=== PATIENT | male | born 1975 ===

== ENCOUNTER 2016-12-07 08:08 | Emergency (ER) | payer MEDICARE, MEDICAID ==
--- NOTE | 2016-12-07 08:32 | ED PDOC ---
Lower Extremity Pain/Injury Time Seen by Provider: 12/07/16 08:12 Chief Complaint (Nursing): Lower Extremity Problem/Injury Chief Complaint (Provider): Left medial ankle pain History Per: Family (mother) History/Exam Limitations: other (patient has autism) Onset/Duration Of Symptoms: Days (4x) Current Symptoms Are (Timing): Still Present Severity: Moderate Additional Complaint(s): 41 year old male with autism accompanied by his mother (HPI is as per mother) presents to the ED with complaints of left medial ankle pain that started 4x days ago. His mother reports that her son has been taking motrin for the pain with no relief. She reports that he was recently diagnosed with gout and he has an appointment scheduled with Stone Callahan MD in 2x days. She denies any trauma to his left ankle. PMD: [facility] provider Past Medical History Reviewed: Historical Data, Nursing Documentation, Vital Signs Vital Signs: Last Vital Signs Temp 98.3 F 12/07/16 08:16 Pulse 122 H 12/07/16 08:16 Resp 18 12/07/16 08:16 BP 173/98 H 12/07/16 08:16 Pulse Ox 98 12/07/16 08:16 - Medical History PMH: Anxiety, HTN, Hyperlipidemia - Surgical History Surgical History: No Surg Hx - Family History Family History: States: Unknown Family Hx - Social History Alcohol: None Drugs: Denies - Home Medications Home Medications: Ambulatory Orders Medication Instructions Recorded Lisinopril [Zestril] 20 mg PO DAILY 12/07/16 [id number] Ethyl Esters 1 GM 1 gm PO BID 12/07/16 [Lovaza] Pravastatin Sodium [Pravachol] 40 mg PO DAILY 12/07/16 Risperidone [Risperdal] 1 mg PO BID 12/07/16 - Allergies Allergies/Adverse Reactions: Allergies Allergy/AdvReac Type Severity Reaction Status Date / Time No Known Allergies Allergy Verified 12/07/16 08:16 Review of Systems Review Of Systems: ROS cannot be obtained secondary to pt's inabilty to answer questions. (due to patient having autism) Musculoskeletal: Positive for: Foot Pain (left medial ankle pain) Physical Exam - Reviewed Nursing Documentation Reviewed: Yes Vital Signs Reviewed: Yes - Physical Exam Appears: Positive for: Well, Non-toxic, No Acute Distress Head Exam: Positive for: ATRAUMATIC, NORMOCEPHALIC Skin: Positive for: Normal Color Extremity: Positive for: Other (left medial ankle: erythema. No lesions. Minimal wamrth). Negative for: Swelling Neurologic/Psych: Positive for: Alert - ECG O2 Sat by Pulse Oximetry: 98 (RA) Pulse Ox Interpretation: Normal Medical Decision Making Medical Decision Makin:12 Initial impression: 41 year old male with left medial ankle pain Initial plan: * XRay ankle left 3 views * XRay foot left 3 views * Ultram 50mg PO * Reevaluation Scribe Attestation: Documented by Sil Huston, acting as a scribe for Kathie Melendez MD. Provider Scribe Attestation: All medical record entries made by the Scribe were at my direction and personally dictated by me. I have reviewed the chart and agree that the record accurately reflects my personal performance of the history, physical exam, medical decision making, and the department course for this patient. I have also personally directed, reviewed, and agree with the discharge instructions and disposition.
[2016-12-07 08:40] VITALS: O2SAT 98
--- NOTE | 2016-12-07 08:50 | RAD ---
PROCEDURE: Left Foot Radiographs. HISTORY: Medial pain COMPARISON: None. FINDINGS: BONES: Normal. No fracture. JOINTS: Normal. SOFT TISSUES: Normal. OTHER FINDINGS: None. IMPRESSION: Normal left foot radiographs.
--- NOTE | 2016-12-07 08:51 | RAD ---
PROCEDURE: Left Ankle Radiographs. HISTORY: Medial pain COMPARISON: None FINDINGS: BONES: Old medial malleolar fracture. Retro calcaneal heel spur. JOINTS: Normal. No osteoarthritis. Ankle mortise maintained. Talar dome intact SOFT TISSUES: Normal. OTHER FINDINGS: None. IMPRESSION: Old medial malleolar fracture. Retro calcaneal heel spur.
--- NOTE | 2016-12-07 10:55 | CP.PCM.CON ---
History of Present Illness - History of Present Illness History of Present Illness: 41 year male with PMHx of autisim, HTN, HLD, gout presents to the ED for left ankle pain. Patient is accompanied by his mother, who is the historian. Mother state that the pain started on Friday, and got worse on to the point that he couldn't put weight on his left foot and was hopping. She has given him motrin 400 mg for the pain but he has not had much relief. She denies any trauma. Past Patient History - Past Social History Alcohol: None Drugs: Denies - CARDIAC Hx Hypertension: Yes - PSYCHIATRIC Hx Anxiety: Yes - SURGICAL HISTORY Hx Surgeries: No - ANESTHESIA Hx Anesthesia: No Meds Home Medications: Home Medication List Medication Instructions Recorded Confirmed Type Naproxen [Naprosyn] 500 mg PO BID PRN #15 tablet 12/07/16 Rx Allergies/Adverse Reactions: Allergies Allergy/AdvReac Type Severity Reaction Status Date / Time No Known Allergies Allergy Verified 12/07/16 08:16 Physical Exam - Constitutional Appears: Well, Non-toxic, No Acute Distress - Extremities Exam Additional comments: Vasc:DP and PT pulses palbpel 2/4 b/l. Skin temperature warm to warm from proximal to distal b/l. CFT < 3 seconds to all digits b/l. Ortho:Pain on palpation to left medial malleolus. Derm:Mild erythema noted to left medial ankle with mild edema. No open lesions, no drainage noted. Slight increase in warmth noted. Neuro: Unable to assess - Neurological Exam Neurological exam: Alert Results - Vital Signs Recent Vital Signs: Last Vital Signs Temp 98.3 F 12/07/16 08:16 Pulse 122 H 12/07/16 08:16 Resp 18 12/07/16 08:16 BP 173/98 H 12/07/16 08:16 Pulse Ox 98 12/07/16 08:39 Assessment & Plan - Assessment and Plan (Free Text) Assessment: 41 year old male with left medial ankle pain Plan: Patient examined and evaluated Chart, vitals reviewed Discussed in detail with attending, Dr. Callahan Radiographs reviewed- no acute signs of fracture noted Given in ED: colcyrs 3 (0.6 mg each) tabs. Sig: take 2 tabs (1.2 mg total), then 1 hour later 1 tab(0.6 mg total) Rx NSAID per ED attending Patient to follow up with Dr. Callahan in office for scheduled appointment.
[2016-12-07] MEDS ORDERED: COLCHICINE 0.6 MG CAPSULE PO ONE ×2 (11:30→12:30)
[2016-12-07 12:24] VITALS: PULSE 80; RESP 20
[2016-12-07 12:33] VITALS: BP 140/70; TEMP 97.9
== END 2016-12-07 12:34 | disposition home or self-care (01) ==
LOC: H.ER 08:08
DX: M25.572 Pain in left ankle and joints of left foot (principal); M10.9 Gout, unspecified

== ENCOUNTER 2018-07-02 08:31 | Emergency (ER) | payer MEDICARE, MEDICAID ==
[2018-07-02 08:36] VITALS: O2SAT 98
--- NOTE | 2018-07-02 08:52 | ED PDOC ---
HPI: CCC, URI, Sore Throat Time Seen by Provider: 07/02/18 08:42 Chief Complaint (Nursing): ENT Problem Chief Complaint (Provider): left ear pain History Per: Patient History/Exam Limitations: no limitations Onset/Duration Of Symptoms: Days (x3) Current Symptoms Are (Timing): Still Present Location Of Pain: Ear(s) (left) Associated Symptoms: denies: Fever, Chills Ear Symptoms: Left: Ear Pain Additional Complaint(s): Peyman Verde is a 43 year old male, with a past medical history of autism, who presents to the emergency department complaining of left ear pain onset for x3 days. Patient denies any fever, chills or ear discharge. No further medical complaints. PMD: None provided. Past Medical History Reviewed: Historical Data, Nursing Documentation, Vital Signs Vital Signs: Last Vital Signs Temp 98.5 F 07/02/18 08:34 Pulse 90 07/02/18 08:34 Resp 18 07/02/18 08:34 BP 133/85 07/02/18 08:34 Pulse Ox 98 07/02/18 08:34 - Medical History PMH: Anxiety, HTN, Hyperlipidemia Other PMH: autism - Surgical History Surgical History: No Surg Hx - Family History Family History: States: Unknown Family Hx - Social History Current smoker - smoking cessation education provided: No Alcohol: None Drugs: Denies - Home Medications Home Medications: Ambulatory Orders Medication Instructions Recorded Lisinopril [Zestril] 20 mg PO DAILY 12/07/16 Naproxen [Naprosyn] 500 mg PO BID PRN #15 tablet 12/07/16 [id number] Ethyl Esters 1 GM 1 gm PO BID 12/07/16 [Lovaza] Pravastatin Sodium [Pravachol] 40 mg PO DAILY 12/07/16 Risperidone [Risperdal] 1 mg PO BID 12/07/16 Neomycin/Polymyxin/Hydrocortis 3 drop OT TID #1 bottle 07/02/18 [Cortisporin Otic Susp] - Allergies Allergies/Adverse Reactions: Allergies Allergy/AdvReac Type Severity Reaction Status Date / Time No Known Allergies Allergy Verified 12/07/16 08:16 Review of Systems ROS Statement: Except As Marked, All Systems Reviewed And Found Negative Constitutional: Negative for: Fever, Chills ENT: Positive for: Ear Pain (left). Negative for: Ear Discharge Physical Exam - Reviewed Nursing Documentation Reviewed: Yes Vital Signs Reviewed: Yes - Physical Exam Appears: Positive for: No Acute Distress Head Exam: Positive for: ATRAUMATIC, NORMAL INSPECTION, NORMOCEPHALIC Skin: Positive for: Normal Color, Warm, Dry Eye Exam: Positive for: Normal appearance, EOMI, PERRL ENT: Positive for: TM Is/Are (clear), Other (Left ear canal erythematous) Neck: Positive for: Painless ROM Cardiovascular/Chest: Positive for: Regular Rate, Rhythm. Negative for: Murmur Respiratory: Positive for: Normal Breath Sounds. Negative for: Respiratory Distress Extremity: Positive for: Normal ROM (upper and lower extremities). Negative for: Deformity, Swelling Neurologic/Psych: Positive for: Alert, Oriented, Gait (steady) - ECG O2 Sat by Pulse Oximetry: 98 (RA) Pulse Ox Interpretation: Normal Medical Decision Making Medical Decision Making: Time: 08:42 Initial Plan: --Reevaluation At this time patient requires no further treatment in the ED. Patient is medically stable for discharge home with Rx for Cortisporin Otic Susp. Co unseling was provided and all questions were answered regarding diagnosis. There is an agreement for discharge plan. Return if symptoms persist or worsen. Scribe Attestation: Documented by Carter Sosa, acting as a scribe for Miguel Diaz MD. Provider Scribe Attestation: All medical record entries made by the Scribe were at my direction and personally dictated by me. I have reviewed the chart and agree that the record accurately reflects my personal performance of the history, physical exam, medical decision making, and the department course for this patient. I have also personally directed, reviewed, and agree with the discharge instructions and disposition. Disposition - Clinical Impression Clinical Impression: Otitis externa - Patient ED Disposition Is Patient to be Admitted: No Counseled Patient/Family Regarding: Diagnosis, Need For Followup, Rx Given - Disposition Disposition: Routine/Home Disposition Time: 09:05 Condition: FAIR Prescriptions: Neomycin/Polymyxin/Hydrocortis [Cortisporin Otic Susp] 3 drop OT TID #1 bottle Instructions: Outer Ear Infection Forms: [facility] (German) Print Language: TURKISH
[2018-07-02 09:08] VITALS: BP 128/75; PULSE 84; RESP 19; TEMP 97.4
== END 2018-07-02 09:08 | disposition home or self-care (01) ==
LOC: H.ER 08:31
DX: H60.92 Unspecified otitis externa, left ear (principal); E78.5 Hyperlipidemia, unspecified; F84.0 Autistic disorder; I10 Essential (primary) hypertension